=== PATIENT | male | born 1975 | race Caucasian/White ===

== ENCOUNTER → 2022-02-23 | Outpatient (CLI) | payer BC | LOC: COL.VAS 13:12 | DX: I10 Essential (primary) hypertension (principal) ==

== ENCOUNTER → 2022-03-24 | Outpatient (CLI) | payer BC | LOC: COL.RAD 07:44 | DX: J33.8 Other polyp of sinus (principal); G43.909 Migraine, unspecified, not intractable, without status migrainosus; E78.5 Hyperlipidemia, unspecified; I10 Essential (primary) hypertension; R20.0 Anesthesia of skin | CPT/HCPCS: A9575 ==